=== PATIENT | female | born 1990 | race Caucasian/White ===

== ENCOUNTER 2021-07-17 10:50 | Outpatient (CLI) | payer MEDICAID, SELFPAY ==
[2021-07-17 11:04] VITALS: BMI 26.9
[2021-07-17] MEDS: Lactated Ringers 1,000 ML 125 ML IV (11:15)
[2021-07-17 11:31] VITALS: BP 130/74; PULSE 79; TEMP 36.8; O2SAT 99
[2021-07-17] MEDS: Terbutaline 1 MG/ML Vial 0.25 MG SC (11:59)
--- NOTE | 2021-07-17 12:12 | PCM.OPRPT ---
Problems Associated Problem List Diagnoses (1) Breech presentation, antepartum: (2) 37 weeks gestation of : (3) Supervision of other high risk pregnancies, third trimester: Report of Operation Date of Procedure: 07/17/21 Pre-Operative Diagnosis: complete breech at 37 weeks gestation, h/o previous vaginal delivery Post-Operative Diagnosis: same Surgery/Procedure Performed:: Attempted external cephalic version Description of Surgical Findings:: Normal gravid abdomen, complete breech by US Surgeon: Terri Solis production administrative assistant: Renetta Valladares Type of Anesthesia: None Special Medications: terbutaline subq Specimen's removed: none Estimated Blood Loss (mL): 0 Fluids Replaced: 0 Description of Procedure: Reactive nonstress test was obtained. Patient was given terbutaline subcutaneous x1. An ultrasound was performed which confirmed complete breech presentation with the head in the right upper quadrant of the maternal abdomen. This was performed before the terbutaline was given. Attempted frontward roll and backward roll and the head did move but the fetus instantly restituted back to breech. Adequate attempts were made. Patient did tolerate the procedure well despite moderate discomfort. At the end of the procedure the heart tones were stable. And nonstress test was to be obtained. I discussed with the patient there is still a small chance that the baby could convert to vertex spontaneously. Otherwise recommend primary section. With history of third-degree laceration and shoulder dystocia this is reasonable as well. Patient agrees to proceed at 39 weeks if baby is still breech. If baby converts to vertex she would like to attempt vaginal delivery. This is also reasonable as patient has no significant rectal dysfunction and this baby's estimated weight is smaller than last baby. Shoulder dystocia is also mild by history. Chance of recurrence is small. Renetta Valladares assited with the version and checking FHTs during the procedure NST- baseline-normal variability- moderate accels- present decels-absent tocos- no regular ctxs category 1 tracing and reactive Grafts/Implants Used: none Procedure Start Time: 12:10 Procedure Stop Time: 12:14 Complications none
[2021-07-17 12:47] VITALS: BP 130/75; PULSE 81
--- NOTE | 2021-07-20 12:23 | OB.TRI.NOTE ---
HPI - General General Date of Admission: 07/17/21 Date of Service: 07/17/21 Chief Complaint: breech at 37 weeks HPI Narrative JOSE A FLORES, is a 30 F who presents at 37+ weeks for breech presentation, desires attempt of ECV. PFSH PFSH Home Medications [id number] [] 1 tab PO DAILY 07/17/21 [History Last Taken 07/16/21] Allergy/AdvReac Type Severity Reaction Status Date / Time No Known Allergies Allergy Verified 07/17/21 11:05 Physical Exam Narrative awake, alert, NAD NST FHR Rate Baby A Baseline: normal Variability:: Moderate Accelerations:: 15 x 15 Decelerations:: None NST Reactive:: Yes FHR Category:: Category I Uterine Activity:: no regular ctxs Assessment & Plan (1) Supervision of other high risk pregnancies, third trimester: PLAN: R/B/A to trial of ECV reviewed, questions answered, consent signed and she desires to proceed. (2) 37 weeks gestation of : (3) Breech presentation, antepartum:
== END 2021-07-17 23:59 | disposition home or self-care (01) ==
LOC: WPOUT 11:03 → WP 11:04
PROVIDERS: Visit Provider Advanced Practice Midwife
DX: O32.1XX0 Maternal care for breech presentation, not applicable or unspecified (principal); Z3A.37 37 weeks gestation of pregnancy
CPT/HCPCS: 96365; 96366; 59025; 59050; 59412; 99218; J7120; G0378

== ENCOUNTER 2021-07-31 09:30 | Inpatient (IN) | payer MEDICAID, SELFPAY ==
--- NOTE | 2021-07-25 10:42 | PCM.HP.BLA ---
History and Physical Date of Admission: 07/31/21 HPI: The patient is a 30 year old female presenting for pre-operative visit. She is scheduled for , for breech on 03/27/22. Procedure discussed along with risks, benefits and complications. Other alternatives discussed for management. Consent form signed? Yes. ? ? PAST MEDICAL HISTORY PAST MEDICAL HISTORY Diagnosis Date ? Depression ? ? Encounter for insertion or removal of intrauterine contraceptive device 05/18/2008 ? MIRENA-removed ? fracture 2005 ? left arm ? Generalized anxiety disorder ? ? Hemorrhoid ? ? depression ? ? ? PAST SURGICAL HISTORY PAST SURGICAL HISTORY Procedure Laterality Date ? COLONOSCOPY GEN ANES ? ? ? EXTRACTION ERUPTED TOOTH/EXR ? ? ? IUD INSERTION ([facility] [employer])_*FL ? 05/18/2008 ? MIRENA-removed ? ? ? CURRENT MEDICATIONS Current Outpatient Medications Medication Sig Dispense Refill ? Cpovlitw-Nm-Aby-Fe-FA ( VITAMIN) tab Take 1 tablet by mouth. ? ? ? No current facility-administered medications for this visit. ? ? ALLERGIES: Patient has no known allergies. ? PERSONAL HISTORY: SOCIAL HISTORY Social History ? Tobacco Use ? Smoking status: Never Smoker ? Smokeless tobacco: Never Used Vaping Use ? Vaping Use: Never used Substance Use Topics ? Alcohol use: Not Currently ? ? Comment: occasional ? Drug use: No ? FAMILY HISTORY: FAMILY HISTORY FAMILY HISTORY Problem Relation Age of Onset ? other (diverticulitis) Mother ? ? Hypertension Father ? ? other (pre-diabetes) Father ? ? other (ovarian cyst) Sister ? ? No Known Problems Sister ? ? Hypertension Maternal Grandmother ? ? Stroke Maternal Grandmother ? ? Hypertension Maternal Grandfather ? ? Lipids Maternal Grandfather ? ? Lung Cancer Maternal Grandfather ? ? Cancer Paternal Grandmother ? ? Leukemia ? other (lung issues) Paternal Grandfather ? ? No Known Problems Daughter ? ? Glaucoma No Family History ? ? Macular Degen No Family History ? ? Detached Retina No Family History ? ? Blindness No Family History ? ? ? REVIEW OF SYMPTOMS: GENERAL: denies fevers or chills ENDOCRINOLOGY: has not been on steroids Cardiology : denies palpitations or chest pain Respiratory: denies SOB or cough Hematology: denies history of prolonged bleeding or easy bruising or VTE Allergy: Denies history of personal or family history of allergy to anesthesia ? PHYSICAL EXAMINATION: ? VITALS: There were no vitals taken for this visit. ? GENERAL: The patient is well nourished, well hydrated in no acute distress. , The patient is oriented to time, place, and person. NECK: Supple. No lynphadenopathy, normal thyroid, no thyromegaly. LUNGS: Clear to auscultation bilaterally. no wheezes, rhonchi or rales HEART: Regular rate and rhythm, Normal heart sounds and No murmurs or gallops GENITALIA: Normal external genitalia, Urethral meatus normal, Bladder nontender, normal vagina and normal vaginal tone, normal cervix, normal uterus, size and consistency, normal adnexa without masses or tenderness and perineum WNL WET PREP: Not indicated ? IMPRESSION: Breech, 39 weeks Estimated Date of Delivery: 08/04/21 ? ? PLAN: primary c/s ? I have reviewed and updated past medical and surgical history, medications and allergies Assessment & Plan Assessment/Plan (1) Supervision of other high risk pregnancies, third trimester: (2) Breech presentation, antepartum: (3) 39 weeks gestation of :
[2021-07-31] VITALS (18 sets, daily range): BP systolic 99–143; BP diastolic 58–84; PULSE 67–91; RESP 16–18; TEMP 36.2–36.8; O2SAT 96–100; BMI 26.2
[2021-07-31] MEDS: Lactated Ringers 1,000 ML 999 ML IV (10:00)
[2021-07-31 10:22] LABS: Absolute Lymphocyte Count 1.59 X10^3/uL (0.83-4.51); Absolute Neutrophil Count 7.1 X10^3/uL (2.0-7.7); Basophil# 0.02 X10^3/uL; Basophil% 0.2 % (0-1); Eosinophil# 0.09 X10^3/uL; Eosinophils% 0.9 % (0-5); Hematocrit 36.7 % (37-47); Lymphocyte # 1.59 X10^3/ul (0.83-4.51); Lymphocyte % 16.7 % (19-41); Mean Corp Hgb Conc 35.4 g/dL (32-36); Mean Corpuscular Hgb 31.8 pg (27.0-32.0); Mean Corpuscular Volume 89.7 fL (81-99); Mean Platelet Vol. 11.5 fl (6.2-12.0); Monocyte# 0.58 X10^3/uL; Monocyte% 6.1 % (0-10); NRBC Flagged by Analyzer 0 % (0-5); Neutrophil # 7.13 X10^3/uL (2.7-7.7); Platelet Count 179 K/mm3 (150-450); RBC Distribution Width CV 12.7 % (11.6-14.6); RBC Distribution Width SD 41.5 fl (35.1-43.9); Red Blood Count 4.09 M/mm3 (4.2-5.4); White Blood Count 9.5 K/mm3 (4.4-11.0)
[2021-07-31] MEDS: Acetaminophen 500 MG Tablet 1000 MG PO ×2 (10:48→18:07)
[2021-07-31] MEDS: Lactated Ringers 1,000 ML 150 ML IV (11:12)
[2021-07-31] MEDS: Sodium Citrate/Citric Acid 30 ML UDC PO (11:43)
[2021-07-31] MEDS: Cefazolin 2 GM in 0.9% Normal Saline 100 ML IV (11:51)
--- NOTE | 2021-07-31 12:35 | OP.PCM_ITS ---
Assessment & Plan (1) Breech presentation, antepartum: (2) 39 weeks gestation of : (3) Supervision of other high risk pregnancies, third trimester: (4) Single live : (5) delivery delivered: Maternal Data Information Final JAIMEE: 08/04/21 Gestational age: 39 3/7 Details Operative Information Date of Procedure: 07/31/21 Pre-Operative Diagnosis: footling breech Post-Operative Diagnosis: same Classification: Scheduled Procedure Type: low transverse parliamentary archivist #1: Loli Martínez Type of Anesthesia: Spinal Anesthesiologist: Sandra Mendez Special Medications: duramorph Antibiotic Given: Ancef 2 grams IV x1 Drain: Tavares to straight drain Estimated Blood Loss: 600 Fluids Replaced: 1000 Procedure Start Time: 12:12 Procedure Stop Time: 12:32 Time of Delivery: 12:14 Findings Description of Procedure: The patient was taken to the operating room. She was prepped and draped in the dorsal supine position with a leftward tilt. A Pfannenstiel skin incision was made approximately 2 cm above the symphysis pubis and carried through to underlying layer fascia with the scalpel. The fascia was incised incised in the midline and extended laterally with the Beatty scissors. The fascia was dissected off the rectus muscles with blunt and sharp dissection. The rectus muscles were in the midline and the peritoneum was entered bluntly. The peritoneal incision was stretched and the bladder blade was placed. The uterine incision was made in a low transverse fashion with the scalpel and extended superiorly and inferiorly with blunt dissection. The amniotic membranes were ruptured bluntly and clear amniotic fluid returned. Both feet were grasped and brought out through the incision. The infant was turned to back up and the arms were swept out individually. Fingers were placed on the maxilla and the head was then delivered with fundal pressure with gentle traction without difficulty and less than 15 seconds. The mouth and nares were bulb suctioned. The cord was clamped and cut as the infant was stimulated. Cord clamping was delayed. The infant was handed off to the waiting nursing staff. The placenta was delivered with fundal massage and gentle traction in the standard fashion. The uterus was exteriorized and cleared of all clots and debris. The cervix was dilated with a ring forcep. The uterine incision was closed with #1 Vicryl in a running locked fashion. A second layer of the same suture was used in an imbricating fashion. The incision was examined and was found to be hemostatic. The uterus was placed back into the peritoneal cavity and hemostasis was again confirmed. The rectus muscles were examined and any bleeding was Bovie cauterized. The parietal peritoneum and rectus muscles were closed en bloc with an 0 Vicryl running suture. The surgical teams outer gloves were then changed. The rectus fascia was examined and any bleeding was Bovie cauterized and the rectus fascia was closed with 1 Vicryl suture in a running standard fashion. The subcutaneous tissue was examining and any bleeding was Bovie cauterized. The subcutaneous tissue was reapproximated with 3-0 Vicryl suture. The skin was closed in a subcuticular fashion. I performed the entire procedure with assistance. The assistant professor of physics provided tissue retraction suctioning, and uterine manipulation during the surgery.. All sponge, lap, and needle counts were correct. The patient was taken to her room for recovery in a stable condition. Presentation: Positive for Footling Breech Amniotic Fluid Description: Clear Placental Delivery Description: Expressed Placenta Disposition: [facility] Specimen(s) Sent to Pathology: none Cord Vessel Description: 3 Vessels Cord Entanglement: None A Gender: Male (Kurt 8lb 1 oz) (1 minute): 8 (5 minute): 9 Delayed Cord Clamping: Yes Complications Complications: none
[2021-07-31] MEDS: Oxytocin 30 units/NS 500 ml 30 UNITS/500 ML IV.SOLN 167 UNITS IV (12:45)
[2021-07-31] MEDS: Ketorolac 30 MG/ML Syringe IV ×2 (13:44→19:46)
[2021-07-31] MEDS: Lactated Ringers 1,000 ML 100 ML IV (15:11)
[2021-07-31] MEDS: Ondansetron 4 MG/2 ML Vial IV ×2 (16:44→21:40)
[2021-07-31] MEDS: 0.9% Saline Lock 10 ML Syringe IV ×2 (19:46→21:40)
[2021-07-31] MEDS: Sertraline 50 MG Tablet 25 MG PO (21:39)
[2021-08-01] MEDS: Acetaminophen 500 MG Tablet 1000 MG PO ×4 (00:14→17:20)
[2021-08-01] MEDS: 0.9% Saline Lock 10 ML Syringe IV (01:37)
[2021-08-01] MEDS: Ketorolac 30 MG/ML Syringe IV ×2 (01:37→08:10)
[2021-08-01 04:27] VITALS: BP 115/56; PULSE 72; RESP 16; TEMP 36.6; O2SAT 98
[2021-08-01 06:04] LABS: Hematocrit 35.9 % (37-47); Hemoglobin 12.3 g/dL (12.0-15.0); Mean Corp Hgb Conc 34.3 g/dL (32-36); Mean Corpuscular Hgb 31.4 pg (27.0-32.0); Mean Corpuscular Volume 91.6 fL (81-99); Mean Platelet Vol. 11.2 fl (6.2-12.0); Platelet Count 157 K/mm3 (150-450); RBC Distribution Width CV 12.8 % (11.6-14.6); RBC Distribution Width SD 42.4 fl (35.1-43.9); Red Blood Count 3.92 M/mm3 (4.2-5.4); White Blood Count 18.4 K/mm3 (4.4-11.0)
[2021-08-01 08:24] VITALS: BP 113/75; PULSE 74; RESP 16; TEMP 36.6; O2SAT 98
[2021-08-01] MEDS: Senna/Docusate Sodium 1 Tablet PO (10:25)
--- NOTE | 2021-08-01 13:39 | PN_ITS ---
Progress Note Pain well controlled. Average lochia. Tolerating regular diet. Ambulating and urinating without difficulty. Physical Exam Const alert General Appearance: cooperative GI GI Narrative: soft, moderate distention, fundus firm, appropriately tender. Abdominal bandage clean dry and intact Assessment & Plan Assessment/Plan (1) delivery delivered: PLAN: Postoperative day #1 status post primary section. Patient is doing well. is breast-feeding and doing well. Patient desires dis charge home today.
--- NOTE | 2021-08-01 13:40 | PCM.DC.SUM ---
Providers Date of Admission: 07/31/21 Reason For Visit: PRIMARY C SECTION Diagnosis Discharge Diagnosis (1) delivery delivered: Status: Acute Code(s): O82 - Encounter for delivery without indication Medications at Discharge Home Medications nherzhlw-xaz-Vm-FA 1 tab PO DAILY 07/17/21 docusate sodium [DOK] 100 mg PO BID PRN PRN 20 Days #30 capsule 08/01/21 ibuprofen 600 mg PO Q6H PRN 20 Days #40 tablet 08/01/21 Hospital Course Operations - (Primary low transverse section Via Pfannenstiel skin incision with double layer closure of the uterus) Summary of Care Provided Hospital Course: Patient was admitted at 39+ weeks with footling breech presentation. The primary section was performed without difficulty. By postoperative day #1 she was ambulating, urinating tolerating regular diet without difficulty. Her hemoglobin and hematocrit were stable and appropriate for postop status. Patient desired discharged home with routine instructions and prescriptions. Weight / BMI Weight Weight: 75.75 kg Body Mass Index (BMI) 26.2 ABG / Lab / Microbiology Data Result Diagrams: 08/01/21 05:52 Laboratory: Laboratory Results - last 24 hr 08/01/21 05:52: WBC 18.4 H, RBC 3.92 L, Hgb 12.3, Hct 35.9 L, MCV 91.6, MCH 31.4, MCHC 34.3, RDW Std Deviation 42.4, RDW Coeff of Kerwin 12.8, Plt Count 157, MPV 11.2 Meaningful Use Info Meaningful Use Diagnoses (Choose all that apply): None applicable Discharge Plan Admission Admit Date/Time: 07/31/21 09:30 Primary Reason for Your Visit: Attending Provider: Terri Solis Discharge Orders/Prescriptions Prescriptions: New docusate sodium [DOK] 100 MG capsule 100 mg PO BID PRN PRN (Reason: constipation) 20 Days Qty: 30 RF: 1 ibuprofen [ibuprofen] 600 MG tablet 600 mg PO Q6H PRN (Reason: Pain) 20 Days Qty: 40 RF: 1 Continued [id number]-[id number]-Dy-FA 1 mg Tablet 1 tab PO DAILY RF: 0 Disposition Disposition (needs filled in before D/C Order can be placed): Home, Self Care
[2021-08-01 16:33] VITALS: BP 114/77; PULSE 77; RESP 16; TEMP 36.6
== END 2021-08-01 19:29 | disposition home or self-care (01) | DRG 540 ==
PROVIDERS: Admitting Provider Obstetrics & Gynecology; Visit Provider Obstetrics & Gynecology
PROC: 10D00Z1 Extraction of Products of Conception, Low, Open Approach (ICD-10-PCS; CPT 59514; principal; 2021-07-31 11:45)
DX: O32.8XX0 Maternal care for other malpresentation of fetus, not applicable or unspecified (principal); Z37.0 Single live birth; Z3A.39 39 weeks gestation of pregnancy
CPT/HCPCS: 85025; 85027; 86850; 86900; 86901; 99218; 99251; J7120; A4216; G0378; G0463; J2405